=== PATIENT | male | born 1985 | race Caucasian/White ===

== ENCOUNTER 2023-02-09 09:25 | Inpatient (IN) | payer OTHER, SELFPAY ==
[2023-02-09] VITALS (12 sets, daily range): BP systolic 111–141; BP diastolic 67–92; PULSE 87–129; RESP 16–18; TEMP 36.7–38; O2SAT 87–100; BMI 27.4
--- NOTE | 2023-02-09 09:49 | CT_ITS ---
We are attempting to reach an attending provider to discuss findings. An addendum with communication details will be sent when the communication is complete. STUDY: CT ABDOMEN AND PELVIS WITH CONTRAST REASON FOR EXAM: Male, 37 years old. Right lower quadrant abdominal pain RADIATION DOSAGE (If Supplied By Facility): CTDIvol = ( 15.71 ) mGy, DLP = ( 1192.26 ) mGycm TECHNIQUE: Transaxial images were obtained from the dome of the diaphragm to the symphysis pubis without oral contrast. ml of 100mL Isovue-300 contrast was administered. Sagittal and coronal images were reconstructed. Individualized dose optimization techniques were used for this CT. COMPARISON: None. FINDINGS: The visualized lung bases are unremarkable. The visualized portions of the heart are within normal limits. There is decreased attenuation of the liver consistent with steatosis. Normal gallbladder and extrahepatic biliary system. There is a benign calcified granuloma of the spleen. Normal pancreas. Normal bilateral adrenal glands. Normal right kidney. Normal left kidney. Normal visualized stomach. Normal small intestine. Normal colon. Acute appendicitis is present with moderate fluid distention of the lumen of the appendix and moderate to significant periappendiceal inflammation as well as small amounts of fluid tracking down the right paracolic gutter. The appendix is distended up to 1.88 cm where a calcified stone is present near its tip. There is no evidence of an abscess or rupture or free air. Normal abdominal aorta. Normal inferior vena cava. Normal retroperitoneum. Normal urinary bladder. Small calcified nodule seen in the origin of the left spermatic cord. Normal abdominal wall. Normal osseous structures. CT/Abdomen/Pelvis W IV Cont ONLY IMPRESSION: Acute appendicitis 1. Acute appendicitis is present with moderate fluid distention of the lumen of the appendix and moderate to significant periappendiceal inflammation as well as small amounts of fluid tracking down the right paracolic gutter. The appendix is distended up to 1.88 cm where a calcified stone is present near its tip. There is no evidence of an abscess or rupture or free air. Electronically Signed: Arie Aranda MD at 11:59 EDT ,
[2023-02-09 10:13] LABS: Absolute Lymphocyte Count 1.09 X10^3/uL (0.83-4.51); Absolute Neutrophil Count 20.8 X10^3/uL (2.0-7.7); Basophil# 0.03 X10^3/uL; Basophil% 0.1 % (0-1); Eosinophil# 0.01 X10^3/uL; Hemoglobin 13.8 g/dL (13.0-16.5); Lymphocyte # 1.09 X10^3/ul (0.83-4.51); Lymphocyte % 4.5 % (19-41); Mean Corp Hgb Conc 34.5 g/dL (32-36); Mean Corpuscular Hgb 29.1 pg (27.0-32.0); Mean Corpuscular Volume 84.4 fL (80-94); Mean Platelet Vol. 10.3 fl (6.2-12.0); Monocyte# 2.31 X10^3/uL; Monocyte% 9.5 % (0-10); NRBC Flagged by Analyzer 0 % (0-5); Neutrophil # 20.79 X10^3/uL (2.7-7.7); Neutrophil % 85.2 % (47-70); POSITIVE DIFFERENTIAL YES; Platelet Count 242 K/mm3 (150-450); RBC Distribution Width CV 13.2 % (11.6-14.6); RBC Distribution Width SD 40.7 fl (35.1-43.9); Red Blood Count 4.74 M/mm3 (4.6-6.2); White Blood Count 24.4 K/mm3 (4.4-11.0)
[2023-02-09 10:15] LABS: Differential Indicated SCAN CRITERIA MET
[2023-02-09] MEDS: Ondansetron 4 MG/2 ML Vial IV (10:21)
[2023-02-09] MEDS: Morphine 4 MG/ML Syringe IV (10:22)
[2023-02-09 10:26] LABS: ALB/GLOB Ratio 0.9 RATIO (0.9-2.4); AST(SGOT) 8 U/L (15-37); Alanine Aminotransfer ALT/SGPT 19 U/L (16-61); Albumin, Serum 3.4 g/dL (3.2-5.0); Alkaline Phosphatase 80 U/L (45-117); Anion Gap 6 (5-15); BUN 13 mg/dL (7-18); BUN/Creat Ratio 15.2 RATIO (10-20); Calcium,Total 8.6 mg/dL (8.5-10.1); Chloride 98 mmol/L (98-107); Creatinine, Serum 0.85 mg/dL (0.70-1.30); EST Glomerular Filtration Rate 107 mL/min (>60); Est Glom Filt Rate - Afr Amer 130 mL/min (>60); Estimated Creatinine Clearance 127.96 ml/min; Globulin 3.9 g/dL (2.2-4.2); Glucose 121 mg/dL (74-106); Lipase 19 U/L (13-75); Potassium 3.3 mmol/L (3.5-5.1); Protein, Total 7.3 g/dL (6.4-8.2); Sodium Level 130 mmol/L (136-145)
[2023-02-09 10:47] LABS: Differential Comment SCANNED
--- NOTE | 2023-02-09 11:14 | EDS_ITS ---
HPI HPI - GI History of Present Illness Chief Complaint: Abd Pain Narrative Narrative: 37-year-old male with no significant past medical history presenting with right lower quadrant pain. He states it started periumbilically on . It is now rating to the right lower quadrant. States it is now severe. He has nausea but no vomiting. No diarrhea or constipation. Patient states he had a fever last night of 101 Fahrenheit. Patient has not any urinary complaints. He states that when he noted he had a fever he drank plenty of water last night and has been voiding more frequently because of this. PFSH PFSH Allergy/AdvReac Type Severity Reaction Status Date / Time No Known Allergies Allergy Verified 02/09/23 09:29 Social History Smoking Status: Never smoker ROS ROS ED Constitutional Constitutional ED: Reports chills and fever(s) ENT ENT ED: Denies rhinorrhea or sore throat Cardiovascular Cardiovascular: Denies chest pain or palpitations Respiratory/Chest Respiratory/Chest: Denies cough or dyspnea Gastrointestinal Gastrointestinal: Reports abdominal pain and melena; Denies constipation or diarrhea Genitourinary Genitourinary ED: Denies dysuria or hematuria Musculoskeletal Musculoskeletal: Reports myalgias; Denies arthralgias Integumentary Denies abscess or Abrasions Neurologic Neurologic: Denies headache(s) Psychiatric Psychiatric: Denies anxiety or depression EXAM Physical Exam Const Vital Signs: 02/09/23 09:26 02/09/23 09:47 Temperature 99.9 F H 98.4 F Temperature Source Temporal Oral Pulse Rate 129 H 107 H Respiratory Rate 16 16 Blood Pressure 141/92 H 138/85 H Blood Pressure Mean 108 102 Pulse Ox 100 95 Oxygen Delivery Method Room Air Positive well nourished General Appearance ED: NAD; Negative for pallor HEENT Reports moist mucous membranes Eyes PERRL and EOMs intact bilaterally Resp normal respiratory effort and clear to auscultation bilaterally Auscultation: Negative for rales, rhonchi or wheezes Cardio regular rhythm Rate: tachycardic GI Palpation: tender RLQ and periumbilical, guarding RLQ and rebound tenderness present Back/Spine no CVA tenderness Neuro CN's II-XII intact bilaterally Sensorium / Orientation: alert Psych mental status grossly normal Skin no wounds General Skin Exam: Negative for jaundice or pallor MDM MDM MDM Narrative Medical decision making narrative: Patient presenting with right lower quadrant pain. Differential includes pancreatitis, pyelonephritis, kidney stone, UTI, colitis, appendicitis, diverticulitis, bowel obstruction, malignancy. Patient with fever at home last evening. Most likely this is appendicitis. He is medicated with 4 mg morphine and 4 mg Zofran. He is given 2 L of IV fluids because is tachycardic at 129 bpm. CBC was obtained and shows a white blood cell count of 24.4 with left shift. H&H are stable. Liver function and renal function is normal. Sodium slightly low at 130 and potassium slightly low at 3.3. Bilirubin mildly elevated at 1.10. Lipase was negative.. CT of the abdomen pelvis was obtained and interpreted this myself at 1130 and noted that he had a appendicolith and what looks like acute appendicitis. I did not see any free air or free fluid. I discussed this with Dr. Larsen at 1133 and he came to see him in the ED. I had already given him Zosyn. Patient counseled on findings and is amenable to surgery. He will be taken to the OR. Radiologist called me at [address] scan. He states there is no perforation or free fluid or free air. He does state that his appendicitis and is acute. He also sees the appendicolith. Impression: 1. Acute pancreatitis 2. Nausea 3. Leukocytosis Lab Data Attestation: I reviewed the patient's lab results. Labs: Laboratory Results - last 24 hr 02/09/23 10:00 WBC 24.4 H RBC 4.74 Hgb 13.8 Hct 40.0 MCV 84.4 MCH 29.1 MCHC 34.5 RDW Std Deviation 40.7 RDW Coeff of Pao 13.2 Plt Count 242 MPV 10.3 Immature Gran % (Auto) 0.700 Neut % (Auto) 85.2 H Lymph % (Auto) 4.5 L Davidson % (Auto) 9.5 Eos % (Auto) 0.0 Baso % (Auto) 0.1 Absolute Neuts (auto) 20.8 H Absolute Lymphs (auto) 1.09 Nucleated RBC % 0 Differential Comment SCANNED Diff Path Review May foll Sodium 130 L Potassium 3.3 L Chloride 98 Carbon Dioxide 26.0 Anion Gap 6 BUN 13 Creatinine 0.85 Estim Creat Clear Calc 127.96 Est GFR (MDRD) Af Amer 130 Est GFR (MDRD) Non-Af 107 BUN/Creatinine Ratio 15.2 Glucose 121 H Calcium 8.6 Total Bilirubin 1.10 H AST 8 L ALT 19 Alkaline Phosphatase 80 Total Protein 7.3 Albumin 3.4 Globulin 3.9 Albumin/Globulin Ratio 0.9 Lipase 19 Radiography Diagnostic Testing: Clinical Impression(s) from Imaging Studies Abdomen/Pelvis CT 02/09/23 09:49 IMPRESSION: Acute appendicitis 1. Acute appendicitis is present with moderate fluid distention of the lumen of the appendix and moderate to significant periappendiceal inflammation as well as small amounts of fluid tracking down the right paracolic gutter. The appendix is distended up to 1.88 cm where a calcified stone is present near its tip. There is no evidence of an abscess or rupture or free air. Electronically Signed: Arie Aranda MD at 11:59 EDT , ADDENDUM: 02/09/23 1223 IMPRESSION: Acute appendicitis 1. Acute appendicitis is present with moderate fluid distention of the lumen of the appendix and moderate to significant periappendiceal inflammation as well as small amounts of fluid tracking down the right paracolic gutter. The appendix is distended up to 1.88 cm where a calcified stone is present near its tip. There is no evidence of an abscess or rupture or free air. N.B. : The above Results were Read Back by Arie Aranda MD to Garrett Blackburn DO, and understanding confirmed on 02/09/2023 12:16:29 (ET). Electronically Signed: Arie Aranda MD at 11:59 EDT , Discharge Plan Triage Chief Complaint: Abd Pain ED Provider: Garrett Blackburn Dx/Rx/DC Orders Primary Care Provider: Jakob Yarbrough Referrals: Jakob Yarbrough DO [Primary Care Provider] -
--- NOTE | 2023-02-09 12:31 | PCM.HP.STD ---
HPI - General General Date of Service: 02/09/23 Chief Complaint: Acute abdominal pain HPI Narrative CANDICE MCGINNIS, is a 37 M who presents to [facility] 48-hour complaint of acute onset abdominal pain. He states pain began periumbilically 2 days ago and then migrated to his right lower quadrant where it was largely dull in intensity yesterday. However, today has become much more severe in intensity. He notes that this has been associated with some fevers with a Tmax of 101.4 this morning. He denies any similar pains. His last normal bowel movement was 2 days ago. He denies any sick contacts. Patient has a past surgical history of bilateral inguinal hernia repair performed via anterior approaches. Patient denies any family history of inflammatory bowel disease or colon cancer. ED work-up notable for CBC with significant leukocytosis of over 24,000. CT imaging concerning for acute uncomplicated appendicitis with 1.8 cm dilated appendix and associated appendicoliths. PFSH Allergy/AdvReac Type Severity Reaction Status Date / Time No Known Allergies Allergy Verified 02/09/23 09:29 Social History Smoking Status: Never smoker ROS Constitutional Constitutional: Reports fever(s); Denies anorexia Gastrointestinal Gastrointestinal: Reports abdominal pain and nausea; Denies constipation, diarrhea or vomiting Vital Signs Vital Signs Vital Signs: 02/09/23 09:26 02/09/23 09:47 Temperature 99.9 F H 98.4 F Temperature Source Temporal Oral Pulse Rate 129 H 107 H Respiratory Rate 16 16 Blood Pressure 141/92 H 138/85 H Blood Pressure Mean 108 102 Pulse Ox 100 95 Oxygen Delivery Method Room Air Weight Weight: 197 lb Body Mass Index (BMI) 27.4 Physical Exam Const alert and oriented x3 Constitutional Narrative: Mild distress from abdominal discomfort General Appearance: cooperative Resp normal respiratory effort GI GI Narrative: Hirsute abdominal wall, small umbilical hernia visible. Nondistended. Soft and evidence of peritonitis over McBurney's point with palpation. There is a mildly positive Rovsing sign. There is mildly positive obturator sign. Psoas sign is negative. Results Lab / Micro Data 02/09/23 10:00 02/09/23 10:00 Labs: Laboratory Results - last 24 hr 02/09/23 10:00: WBC 24.4 H, RBC 4.74, Hgb 13.8, Hct 40.0, MCV 84.4, MCH 29.1, MCHC 34.5, RDW Std Deviation 40.7, RDW Coeff of Pao 13.2, Plt Count 242, MPV 10.3, Immature Gran % (Auto) 0.700, Neut % (Auto) 85.2 H, Lymph % (Auto) 4.5 L, Piute % (Auto) 9.5, Eos % (Auto) 0.0, Baso % (Auto) 0.1, Absolute Neuts (auto) 20.8 H, Absolute Lymphs (auto) 1.09, Nucleated RBC % 0, Differential Comment SCANNED, Diff Path Review November foll, Sodium 130 L, Potassium 3.3 L, Chloride 98, Carbon Dioxide 26.0, Anion Gap 6, BUN 13, Creatinine 0.85, Estim Creat Clear Calc 127.96, Est GFR (MDRD) Af Amer 130, Est GFR (MDRD) Non-Af 107, BUN/Creatinine Ratio 15.2, Glucose 121 H, Calcium 8.6, Total Bilirubin 1.10 H, AST 8 L, ALT 19, Alkaline Phosphatase 80, Total Protein 7.3, Albumin 3.4, Globulin 3.9, Albumin/Globulin Ratio 0.9, Lipase 19 Radiology Impression Abdomen/Pelvis CT 02/09/23 09:49 IMPRESSION: Acute appendicitis 1. Acute appendicitis is present with moderate fluid distention of the lumen of the appendix and moderate to significant periappendiceal inflammation as well as small amounts of fluid tracking down the right paracolic gutter. The appendix is distended up to 1.88 cm where a calcified stone is present near its tip. There is no evidence of an abscess or rupture or free air. Electronically Signed: Arie Aranda MD at 11:59 EDT , ADDENDUM: 02/09/23 1223 IMPRESSION: Acute appendicitis 1. Acute appendicitis is present with moderate fluid distention of the lumen of the appendix and moderate to significant periappendiceal inflammation as well as small amounts of fluid tracking down the right paracolic gutter. The appendix is distended up to 1.88 cm where a calcified stone is present near its tip. There is no evidence of an abscess or rupture or free air. N.B. : The above Results were Read Back by Arie Aranda MD to Garrett Blackburn DO, and understanding confirmed on 02/09/2023 12:16:29 (ET). Electronically Signed: Arie Aranda MD at 11:59 EDT Reading Location ID and State: [facility] / [place] , Service support , Assessment & Plan Assessment/Plan (1) Acute appendicitis with localized peritonitis: PLAN: This is a 37-year-old, otherwise healthy, male who presents with 48 hours of signs and symptoms of acute appendicitis. ED work-up confirms this diagnosis with CT imaging demonstrating a severely dilated appendix and associated appendicoliths. While radiology notes no overt signs of perforation, they do remark of some free fluid tracking along the right paracolic gutter. Given patient's exam demonstrating focal peritonitis and the CT findings, I have recommended emergent laparoscopic appendectomy. I have shared with patient that appendicitis is managed in some partial wound with antibiotics alone, however, the presence of appendicoliths would portend failure of antibiotic?alone management. Further, I have communicated to both him and his that there is still a chance that intraoperative findings identify concern for perforation and have outlined the expected postoperative course for both complicated and uncomplicated appendicitis. Patient provides his verbal consent to proceed emergently for laparoscopic appendectomy. OR and anesthesia been notified. Emergency medicine as previously ordered patient IV Zosyn. Charges/Coding Visit Charges Inpatient E&M: 16575 Init Hosp L2
[2023-02-09 12:40] LABS: Bacteria 0 SEEN /hpf (None Seen); Mucous, Urine 0 SEEN /hpf (<or=2+); Red Blood Cells-Urine 0 SEEN /hpf (0-5); Squamous Epithelial Cells - UA 0 SEEN /hpf (0-5); White Blood Cells 0 SEEN /hpf (0-5)
[2023-02-09 12:43] LABS: Color, Urine Yellow (Yellow); Glucose, Dipstick Normal (Normal); Ketone-Dipstick 50 mg/dl (Negative); Leukocyte Esterase-Dipstick Negative /ul (Negative); Nitrite-Dipstick Negative (Negative); Occult Blood-Urine Negative /ul (Negative); Protein-Dipstick 15 mg/dl (Negative); Specific Gravity, Urine 1.015 (1.002-1.030); Urine Bilirubin Dipstick Negative (Negative); Urine Clarity Clear (Clear); Urine Urobilinogen Normal (Normal); Urine pH 6.5 (5.0 - 8.0)
--- NOTE | 2023-02-09 13:35 | APP_PTH ---
PATIENT: CANDICE MCGINNIS LOC: MS3 U#:[id number] AGE/SX: 37/M ROOM: [facility] [place] RE02/09/[address]: Dr. Hi Larsen MD : 1985 BED: 1 DIS: 02/11/2023 SPEC #: [id number] RECD: 02/11/23 08:29 STATUS: ANA WARD #: [id number] IZABELLA: 02/09/23 13:[address]: Hi Larsen DEPT: SURGICAL PATHOLOGY RECD BY: Juan Ness ENTERED: 02/11/23 09:40 SP TYPE: APPENDIX OTHR DR: Dr. Jakob Yarbrough DO Tissues: Appendix, NOS Procedures: Surgery Specimen Level III HEADER OPERATION: Laparoscopic appendectomy PRE-OP DIAGNOSIS: Acute appendicitis with localized peritonitis TISSUE SUBMITTED: Appendix MICROSCOPIC DIAGNOSIS Appendix, appendectomy: Necrotizing acute appendicitis. Acute serositis. AM:rubi 02/12/2023 MICROSCOPIC DESCRIPTION Slides are reviewed. GROSS DESCRIPTION Received in fixative is one container labeled with the patient's name and designated appendix. The specimen consists of an appendix measuring 7.0 cm in length and up to 1.5 cm in diameter. The attached periappendiceal adipose tissue measures up to 3.0 cm in width. The serosa is covered with bueno, purulent exudate. A focal area of rupture is noted. The mucosa is congested and hemorrhagic. A fecalith is identified in the lumen measuring 1.5 cm in greatest dimension. Truck Engine Technician sections are submitted in two cassettes. / SJ:rubi 02/11/2023 TC:2 CPT: 47846
[2023-02-09] MEDS: Bupivacaine Mpf 0.5% 30 ML VIAL (15:01)
--- NOTE | 2023-02-09 15:11 | PCM.OPRPT ---
Report of Operation Date of Procedure: 02/09/23 Pre-Operative Diagnosis: Acute appendicitis Post-Operative Diagnosis: Acute complicated (perforated) appendicitis Surgery/Procedure Performed:: Laparoscopic appendectomy Surgeon: Hi Larsen program manager slp: Reshma Saeed Type of Anesthesia: General/Supplemental Anesthesiologist: Stephanie Fischer Specimen's removed: appendix Drains: Maksim drain Estimated Blood Loss (mL): 25 Description of Procedure: After appropriate identification in the preoperative holding area, the patient was brought to the operating room and placed supine on the operating room table. Antibiotics had been preoperatively administered by emergency medicine. Patient was then induced with general endotracheal anesthetic. The abdomen was prepped and draped in usual sterile fashion. Formal timeout was conducted to confirm both the patient and the procedure. A supraumbilical incision was made and carried down to the level of the fascia which was sharply opened. After opening the peritoneum in like fashion a finger sweep was made to confirm position, and a balloon trocar was placed and pneumoperitoneum was established to 15 mmHg. Patient was positioned in Trendelenburg with the left side down. 2 additional 5 mm trocars were placed in the left lower quadrant and suprapubic positions. The peritoneum was inspected and there were no signs of inadvertent injury from this Treadwell entry. The appendix was partially visualized with severe inflammation. The terminal ileum was injected and adherent over the majority of the appendix. When I attempted to bluntly sweep this away there was ponce expression of purulence from the tip of the appendix. This was promptly suctioned free and a specimen was collected using a Luken's trap connected to our suction straightening press operator helper device. Ultimately I was able to gently peel the terminal ileum off the right pelvic brim with gentle traction and thereby exposed the base of the appendix emanating from the coalescence of the tinea. The base of the appendix grossly appeared rather normal with a normal diameter lumen. At this point they noticed a small appendicolith really present along the right pelvic brim that was grasped and removed from the peritoneum via our supraumbilical port site. It was set aside to be sent with the rest of her specimen. Using blunt laparoscopic dissection, a window was made in the mesoappendix adjacent to the appendiceal base. I attempted to insert the stapler to divide the appendix, however, the mesoappendix remained densely adherent to the retroperitoneum and the cecum could not be further mobilized to accommodate the tip of the stapler. Therefore the stapler was withdrawn and the mesoappendix was divided along its midportion using the harmonic scalpel. Additional mesoappendix was divided directly adjacent to the base of the appendix leaving the base of the appendix open for stapler approach. The Endo JANA stapler was then used to divide the base of the appendix after a few minutes of compression. The resulting staple line was hemostatic. The appendix was placed in an Endo Catch bag. Some remaining oozing and serous fluid was present in the surgical cavity and was suctioned free. I then copiously irrigated the area locally to try to dilute any contamination. Simultaneously I inspected the irrigation for any swirl sign to indicate ongoing bleeding. No swirl signs were detected in the effluent was suctioned free of the peritoneum. Once again the staple line was inspected for hemostasis. Finding this to be intact I then directed attention to the patient's pelvis where I placed the suction straightening press operator helper anterior to the distal sigmoid colon/rectum and suction the free fluid found there in the pelvis. A 15 Bangladeshi round Maksim drain was fed into the peritoneum via our left lower quadrant port site and pulled through the suprapubic position. It was positioned along the right paracolic gutter and into part of the pelvis with a laparoscopic grasper. Pneumoperitoneum was then evacuated and the drain was tied into the abdominal wall using a 3-0 nylon suture. The supraumbilical port site fascia had to be further open to permit passage of our specimen given its bulky size. This was done with electrocautery to maintain hemostasis. After the specimen was delivered via this opening the supraumbilical port site fascia was closed with #1 Vicryl in a [id number] fashion. The port sites were infiltrated with 30 mL local anesthetic. The skin of each port site was closed with 4-0 Monocryl in a subcuticular fashion. Steri-Strips and OpSite dressings were applied. Patient tolerated procedure well without any apparent complications. They were awoken from general anesthetic without issue and transferred to post anesthesia care unit for ongoing recovery. Prior to moving the patient to PACU, however, it was noted that patient had some oozing from his supraumbilical port site and the dressing was discontinued. Manual pressure was applied after donning sterile gloves and a pressure dressing was placed. On reinspection the wound now appeared hemostatic. Grafts/Implants Used: N/A Complications None Admit VTE Documentation VTE Mechan Device Prophylaxis: SCD's Procedures Digestive 40xxx-49xxx: 27950 Laparoscopy appendectomy
[2023-02-09] MEDS: 0.9% Normal Saline 1,000 ML 125 ML IV ×2 (16:34→21:52)
[2023-02-09] MEDS: Ibuprofen 400 MG Tablet PO ×2 (18:15→22:58)
[2023-02-10 05:00] VITALS: BP 107/71; PULSE 89; RESP 16; TEMP 37.3; O2SAT 94
[2023-02-10 05:08] LABS: Absolute Lymphocyte Count 0.73 X10^3/uL (0.83-4.51); Absolute Neutrophil Count 16.1 X10^3/uL (2.0-7.7); Basophil# 0.03 X10^3/uL; Basophil% 0.2 % (0-1); Hematocrit 35.5 % (40-54); Hemoglobin 11.6 g/dL (13.0-16.5); Lymphocyte # 0.73 X10^3/ul (0.83-4.51); Mean Corp Hgb Conc 32.7 g/dL (32-36); Mean Corpuscular Hgb 28.9 pg (27.0-32.0); Mean Corpuscular Volume 88.3 fL (80-94); Mean Platelet Vol. 10.1 fl (6.2-12.0); Monocyte# 1.28 X10^3/uL; NRBC Flagged by Analyzer 0 % (0-5); Neutrophil # 16.14 X10^3/uL (2.7-7.7); Neutrophil % 87.7 % (47-70); Platelet Count 233 K/mm3 (150-450); RBC Distribution Width CV 13.6 % (11.6-14.6); RBC Distribution Width SD 44.1 fl (35.1-43.9); Red Blood Count 4.02 M/mm3 (4.6-6.2); White Blood Count 18.4 K/mm3 (4.4-11.0)
[2023-02-10] MEDS: 0.9% Normal Saline 1,000 ML 125 ML IV ×2 (05:30→13:44)
[2023-02-10] MEDS: Ibuprofen 400 MG Tablet PO ×4 (05:30→23:39)
[2023-02-10 05:41] LABS: Anion Gap 3 (5-15); BUN 13 mg/dL (7-18); Chloride 105 mmol/L (98-107); Creatinine, Serum 0.93 mg/dL (0.70-1.30); EST Glomerular Filtration Rate 98 mL/min (>60); Est Glom Filt Rate - Afr Amer 118 mL/min (>60); Estimated Creatinine Clearance 116.95 ml/min; Glucose 145 mg/dL (74-106); Magnesium 2.2 mg/dL (1.6-2.6); Phosphorus 2.7 mg/dL (2.5-4.9); Potassium 3.8 mmol/L (3.5-5.1); Sodium Level 137 mmol/L (136-145)
[2023-02-10 08:00] VITALS: BP 122/75; PULSE 95; RESP 18; TEMP 37.2; O2SAT 92
--- NOTE | 2023-02-10 08:31 | PN.SURG_ITS ---
Subjective Subjective Patient seen and examined at bedside during AM rounds. He is found resting quietly. He denies any significant abdominal pain at rest. He denies any significant appetite but does report tolerance of his liquid diet last evening. He denies any nausea belching or hiccuping. Objective Data Objective Data Vital Signs: Vital Signs Temp Pulse Resp BP Pulse Ox O2 Del Method O2 Flow Rate 99.2 F H 89 16 107/71 94 Room Air 2 02/10/23 05:00 02/10/23 05:00 02/10/23 05:00 02/10/23 05:00 02/10/23 05:00 02/10/23 05:00 02/09/23 18:18 Oxygen Flow Rate (L/min) 2 Oxygen Delivery Method Room Air Weight: 197 lb Body Mass Index (BMI) 27.4 Intake & Output: Intake and Output for Last 24 Hours 02/08/23 02/09/23 02/10/23 23:59 23:59 23:59 Intake Total 912.5 / 912.5 1004.17 / 1004.17 Output Total 45 / 45 Balance 867.5 / 867.5 1004.17 / 1004.17 Lab / Micro Data 02/10/23 04:44 02/10/23 04:44 Labs: Laboratory Results - last 24 hr 02/09/23 10:00: WBC 24.4 H, RBC 4.74, Hgb 13.8, Hct 40.0, MCV 84.4, MCH 29.1, MCHC 34.5, RDW Std Deviation 40.7, RDW Coeff of Pao 13.2, Plt Count 242, MPV 10 .3, Immature Gran % (Auto) 0.700, Neut % (Auto) 85.2 H, Lymph % (Auto) 4.5 L, Grimes % (Auto) 9.5, Eos % (Auto) 0.0, Baso % (Auto) 0.1, Absolute Neuts (auto) 20.8 H, Absolute Lymphs (auto) 1.09, Nucleated RBC % 0, Differential Comment SCANNED, Diff Path Review November, Sodium 130 L, Potassium 3.3 L, Chloride 98, Carbon Dioxide 26.0, Anion Gap 6, BUN 13, Creatinine 0.85, Estim Creat Clear Calc 127.96, Est GFR (MDRD) Af Amer 130, Est GFR (MDRD) Non-Af 107, BUN/Creatinine Ratio 15.2, Glucose 121 H, Calcium 8.6, Total Bilirubin 1.10 H, AST 8 L, ALT 19, Alkaline Phosphatase 80, Total Protein 7.3, Albumin 3.4, Globu savannah 3.9, Albumin/Globulin Ratio 0.9, Lipase 19 02/09/23 12:32: Urine Color Yellow, Urine Clarity Clear, Urine pH 6.5, Ur Specific Fletcher 1.015, Urine Protein 15 H, Urine Glucose (UA) Normal, Urine Ketones 50 H, Urine Occult Blood Negative, Urine Nitrite Negative, Urine Bilirubin Negative, Urine Urobilinogen Normal, Ur Leukocyte Esterase Negative, Urine RBC 0 SEEN, Urine WBC 0 SEEN, Ur Squamous Epith Cells 0 SEEN, Urine Bacteria 0 SEEN, Urine Mucus 0 SEEN 02/10/23 04:44: WBC 18.4 H, RBC 4.02 L, Hgb 11.6 L, Hct 35.5 L, MCV 88.3, MCH 28.9, MCHC 32.7 D, RDW Std Deviation 44.1 H, RDW Coeff of Pao 13.6, Plt Count 233, MPV 10.1, Immature Gran % (Auto) 1.100 H, Neut % (Auto) 87.7 H, Lymph % (Auto) 4.0 L, Grimes % (Auto) 7.0, Eos % (Auto) 0.0, Baso % (Auto) 0.2, Absolute Neuts (auto) 16.1 H, Absolute Lymphs (auto) 0.73 L, Nucleated RBC % 0, Sodium 137, Potassium 3.8, Chloride 105, Carbon Dioxide 29.0, Anion Gap 3 L, BUN 13, Creatinine 0.93, Estim Creat Clear Calc 116.95, Est GFR (MDRD) Af Amer 118, Est GFR (MDRD) Non-Af 98, BUN/Creatinine Ratio 14.0, Glucose 145 H, Calcium 8.0 L, Phosphorus 2.7, Magnesium 2.2 Radiography Diagnostic Testing: Radiology Impression Abdomen/Pelvis CT 02/09/23 09:49 IMPRESSION: Acute appendicitis 1. Acute appendicitis is present with moderate fluid distention of the lumen of the appendix and moderate to significant periappendiceal inflammation as well as small amounts of fluid tracking down the right paracolic gutter. The appendix is distended up to 1.88 cm where a calcified stone is present near its tip. There is no evidence of an abscess or rupture or free air. Electronically Signed: Arie Aranda MD at 11:59 EDT , ADDENDUM: 02/09/23 1223 IMPRESSION: Acute appendicitis 1. Acute appendicitis is present with moderate fluid distention of the lumen of the appendix and moderate to significant periappendiceal inflammation as well as small amounts of fluid tracking down the right paracolic gutter. The appendix is distended up to 1.88 cm where a calcified stone is present near its tip. There is no evidence of an abscess or rupture or free air. N.B. : The above Results were Read Back by Arie Aranda MD to Garrett Blackburn DO, and understanding confirmed on 02/09/2023 12:16:29 (ET). Electronically Signed: Arie Aranda MD at 11:59 EDT , Physical Exam Const oriented x3 and no apparent distress Resp normal respiratory effort GI GI Narrative: Mildly distended, operative dressings remain intact and are clean and dry. Suprapubic drain with some clot in the line when this is removed the drainage content to this cloudy and pink/bueno. Patient has expected tenderness in the right lower quadrant and about port sites. Assessment & Plan Assessment/Plan (1) Appendicitis with perforation: PLAN: This is a 37-year-old male postoperative day 1 from laparoscopic appendectomy with drain placement for intraoperative finding of perforated appendicitis. Overall patient is recovering as expected. He has had some low- grade fevers, but his white count appears to be improving. He has not yet regained his appetite and his abdomen is distended. He still has some cloudy output from his drain. Therefore, would like to continue with clear liquids this morning and continue IV antibiotics. We will plan to reassess this afternoon, but anticipate patient will require at least 1 more night before his fit for discharge home. I informed patient that he will need to be tolerating a diet and a transition to oral antibiotics first. Ideally we will remove his peritoneal drain as well, however, its output remains turbid and it appears to still be functioning to eradicate some purulent material. Charges/Coding Visit Charges Inpatient E&M: 64226 Subs Hosp L2
[2023-02-10 15:03] VITALS: BP 125/86; PULSE 83; RESP 18; TEMP 36.9; O2SAT 96
[2023-02-10 22:48] VITALS: BP 128/87; PULSE 85; RESP 18; TEMP 36.7; O2SAT 96
[2023-02-10] MEDS: 0.9% Normal Saline 1,000 ML 75 ML IV (23:39)
[2023-02-11 03:11] VITALS: BP 137/66; PULSE 67; RESP 18; TEMP 36.6; O2SAT 96
[2023-02-11] MEDS: Ibuprofen 400 MG Tablet PO ×3 (05:28→17:27)
[2023-02-11 06:26] LABS: Absolute Lymphocyte Count 1.55 X10^3/uL (0.83-4.51); Absolute Neutrophil Count 8.2 X10^3/uL (2.0-7.7); Basophil# 0.03 X10^3/uL; Basophil% 0.3 % (0-1); Eosinophil# 0.14 X10^3/uL; Eosinophils% 1.3 % (0-5); Hematocrit 35.5 % (40-54); Hemoglobin 11.3 g/dL (13.0-16.5); Lymphocyte # 1.55 X10^3/ul (0.83-4.51); Mean Corp Hgb Conc 31.8 g/dL (32-36); Mean Corpuscular Hgb 28.6 pg (27.0-32.0); Mean Corpuscular Volume 89.9 fL (80-94); Mean Platelet Vol. 10.1 fl (6.2-12.0); Monocyte% 9.9 % (0-10); NRBC Flagged by Analyzer 0 % (0-5); Neutrophil # 8.19 X10^3/uL (2.7-7.7); Neutrophil % 73.8 % (47-70); Platelet Count 229 K/mm3 (150-450); RBC Distribution Width CV 13.6 % (11.6-14.6); RBC Distribution Width SD 45.1 fl (35.1-43.9); Red Blood Count 3.95 M/mm3 (4.6-6.2); White Blood Count 11.1 K/mm3 (4.4-11.0)
[2023-02-11 07:06] LABS: Anion Gap 1 (5-15); BUN 13 mg/dL (7-18); BUN/Creat Ratio 16.1 RATIO (10-20); Calcium,Total 7.9 mg/dL (8.5-10.1); Chloride 109 mmol/L (98-107); Creatinine, Serum 0.81 mg/dL (0.70-1.30); EST Glomerular Filtration Rate 114 mL/min (>60); Est Glom Filt Rate - Afr Amer 138 mL/min (>60); Estimated Creatinine Clearance 134.28 ml/min; Glucose 95 mg/dL (74-106); Magnesium 2.4 mg/dL (1.6-2.6); Potassium 4.2 mmol/L (3.5-5.1); Sodium Level 138 mmol/L (136-145)
[2023-02-11 09:00] VITALS: BP 132/84; PULSE 88; RESP 16; TEMP 37; O2SAT 94
--- NOTE | 2023-02-11 09:48 | PCM.PN.SRG ---
Subjective Subjective Patient seen and examined during AM rounds. Reports resting well overnight. He does state when he tried it take his regular diet last evening he had significant bloating and set this aside. He denies any nausea or belching this morning. He reports feeling better today. Objective Data Objective Data Vital Signs: Vital Signs Temp Pulse Resp BP Pulse Ox O2 Del Method O2 Flow Rate 97.8 F 67 18 137/66 H 96 Room Air 2 02/11/23 03:11 02/11/23 03:11 02/11/23 03:11 02/11/23 03:11 02/11/23 03:11 02/11/23 03:11 02/09/23 18:18 Oxygen Flow Rate (L/min) 2 Oxygen Delivery Method Room Air Weight: 197 lb Body Mass Index (BMI) 27.4 Intake & Output: Intake and Output for Last 24 Hours 02/09/23 02/10/23 02/11/23 23:59 23:59 23:59 Intake Total 912.5 / 912.5 4993.75 / 4993.75 350 / 350 Output Total 45 / 45 207 / 207 Balance 867.5 / 867.5 4786.75 / 4786.75 350 / 350 Lab / Micro Data 02/11/23 06:16 02/11/23 06:16 Labs: Laboratory Results - last 24 hr 02/11/23 06:16: WBC 11.1 H, RBC 3.95 L, Hgb 11.3 L, Hct 35.5 L, MCV 89.9, MCH 28.6, MCHC 31.8 L, RDW Std Deviation 45.1 H, RDW Coeff of Pao 13.6, Plt Count 229, MPV 10.1, Immature Gran % (Auto) 0.700, Neut % (Auto) 73.8 H, Lymph % (Auto) 14.0 L, Merrick % (Auto) 9.9, Eos % (Auto) 1.3, Baso % (Auto) 0.3, Absolute Neuts (auto) 8.2 H, Absolute Lymphs (auto) 1.55, Nucleated RBC % 0, Sodium 138, Potassium 4.2, Chloride 109 H, Carbon Dioxide 28.0, Anion Gap 1 L, BUN 13, Creatinine 0.81, Estim Creat Clear Calc 134.28, Est GFR (MDRD) Af Amer 138, Est GFR (MDRD) Non-Af 114, BUN/Creatinine Ratio 16.1, Glucose 95, Calcium 7.9 L, Phosphorus 2.0 L, Magnesium 2.4 Micro: Microbiology 02/09/23 14:16 Incision/Surgical Site Gram Stain - Final 02/09/23 14:16 Incision/Surgical Site Wound Culture - Preliminary GNR lactose inventory control assistant GNR lactose inventory control assistant#2 Gram positive organism Physical Exam Const oriented x3 and no apparent distress Resp normal respiratory effort GI GI Narrative: Mild abdominal distention still present, operative dressings remain clean dry and intact. Suprapubic drain with clear and serous yellow output. Patient with mild tenderness on palpation about operative sites Assessment & Plan Assessment/Plan (1) Appendicitis with perforation: PLAN: This is a 37-year-old male postoperative day 2 from laparoscopic appendectomy with drain placement for intraoperative finding of perforated appendicitis. Overall patient is recovering as expected. His fever curve has improved and his appetite is returned. However, on attempting a regular diet yesterday he did have some bloating so he delayed further intake until this morning. His drain output appears to be clearing rapidly and now is largely serous in character. Plan to reevaluate his tolerance of a regular diet today and transition to oral antibiotics. We will plan to reassess this afternoon, but if he is tolerating regular diet and his oral antibiotics we will plan to remove his drain and discharge to home.
[2023-02-11] MEDS: Amox/Clavulanate 875 MG Tablet PO (10:35)
--- NOTE | 2023-02-11 11:53 | CASEMGMT ---
AMY NEWMAN Assessment: Face to Face with pt for initial transition planning/care coordination assessment. AMY NEWMAN introduced self and role at [facility], pt voices understanding and consents to assessment. Pt is A/O x4 and answers all questions appropriately at this time. Pt seen ambulating the halls independently. Care providers, pharmacy, and demographics verified/updated. Admitting Dx: acute perforated appendicitis PCP:Linnea Specialists: Pt denies Preferred Pharmacy: [facility] Retail Insurance: [employer] Prescription Benefit: no LNOK: Annmarie Stallings, ; Amina/Citlaly Stallings, parents Living Arrangements: Pt lives with and dtr in a single story home with 2 steps to enter. Pt reports he is I in ADL's and denies concerns at home. 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 DME/HHC/SNF: Pt denies having any DME in the home, previous HHC or SNF stays. Pt states no concerns with going home at time of dc. Pt states no further concerns/needs. CM to follow. Advised pt to ask CM if any further question/concerns/needs arise, voices understanding. Pt Goal: Home Plan: Home
[2023-02-11] MEDS: 0.9% Normal Saline 1,000 ML 75 ML IV (12:50)
[2023-02-11 15:57] VITALS: BP 128/74; PULSE 83; RESP 16; TEMP 36.9; O2SAT 100
--- NOTE | 2023-02-11 18:06 | DCINST_ITS ---
Discharge Instructions Diet Discharge Diet: No restrictions Activity Discharge Activity: May Not Drive (No driving while using narcotic pain medication) and May Shower (but please cover drain site with plastic barrier for first 48 hours) Ice area for (Minutes): 20 Lifting Restrictions: No lifting greater than 15 pounds for 2 weeks after surgery Dressing / Incision Call your doctor if your incision/area has: Continuous Slow Oozing, Increased Pain/ Swelling, Increased Redness, Foul Smelling Discharge and Swelling at the incision site Call your doctor if you observe: Fever of 101 or Higher Remove Dressing in: 2 days (Please leave Steri-Strips intact until they fall off spontaneously or are taken off at your follow-up visit) Cleanse incision/area with: Soap & Water Follow Up Care Please Follow Up With: Hi Larsen MD When: 7-10days postop Test Results: Test results from this visit will be discussed in further detail at your follow- up appointment, if applicable. Discharge Plan Admission Admit Date/Time: 02/09/23 15:17 Primary Reason for Your Visit: acute perforated appendicitis Attending Provider: Hi Larsen Primary Care Provider: Jakob Yarbrough Discharge Orders/Prescriptions Prescriptions: New amoxicillin-pot clavulanate 875-125 mg Tablet 1 tab PO BID 4 Days Qty: 8 0RF oxycodone 5 mg Tablet 5 mg PO Q6H PRN PRN (Reason: Pain Score 6-10) 3 Days Qty: 7 0RF Referrals / Follow Up: Jakob Yarbrough DO [Primary Care Provider] - Disposition Disposition (needs filled in before D/C Order can be placed): Home, Self Care
[2023-02-12 09:51] LABS: Pathologist Review Reviewed
== END 2023-02-11 19:22 | disposition home or self-care (01) | DRG 340 ==
LOC: ED 12:50 → MS3 15:24
PROVIDERS: Admitting Provider Surgery; Emergency Provider Student in an Organized Health Care Education/Training Program; PCP Family Medicine; Visit Provider Surgery
PROC: 0DTJ4ZZ Resection of Appendix, Percutaneous Endoscopic Approach (ICD-10-PCS; CPT 44970; principal; 2023-02-09 13:15)
DX: K35.33 Acute appendicitis with perforation, localized peritonitis, and gangrene, with abscess (principal)
CPT/HCPCS: 36415; 74177; 80048; 80053; 81001; 83690; 83735; 84100; 85025; 87070; 87075; 87077; 87186; 87205; 88304; 94668; 99252; 99284; J7030; Q9967; A4216; G0463; J2405